=== PATIENT | male | born 1965 | race American Indian/Alaskan Native ===

== ENCOUNTER 2017-08-30 09:35 | Outpatient (CLI) | payer OTHER ==
--- NOTE | 2017-08-30 11:02 | XRay Report ---
Bilateral knee: History: Knee problems. Findings: Minimal medial compartment right and left knee gently more pronounced on the left knee joint. Prefers osteophyte suggestive degenerative changes at the left medial compartment and also degenerative changes are noted at the telephone compartment bilaterally with spur formation at the anterosuperior patella bilaterally. No soft tissue calcification a suspicion of joint effusion. Impression: Arthritic changes are noted at the medial and patellofemoral compartment knee joint minimal pronounced at the left knee joint.
--- NOTE | 2017-08-30 11:03 | XRay Report ---
Cervical spine 3 views: History: Knee problems. Kidney problems. Findings: Loss of cervical lordosis. Normal height of vertebral bodies. Decrease in height of C5-C6 C6-C7 and C6 and C7-T1. Sclerotic edges articular surfaces the peripheral osteophytes suggestive of severe cervical spondylosis. Normal prevertebral soft tissue. No fracture. Impression: Severe spondylosis lower cervical spine
== END 2017-08-30 09:36 | disposition home or self-care (01) ==
LOC: XRAY 09:35
PROVIDERS: ATTEND Internal Medicine
DX: M17.0 Bilateral primary osteoarthritis of knee (principal); M47.892 Other spondylosis, cervical region; I51.9 Heart disease, unspecified; H40.9 Unspecified glaucoma; N28.89 Other specified disorders of kidney and ureter
CPT/HCPCS: 72040